=== PATIENT | male | born 1990 | race Caucasian/White ===

== ENCOUNTER 2021-07-05 05:08 | Emergency (ER) | payer BC ==
[2021-07-05 05:37] VITALS: BP 125/78; PULSE 75; TEMP 98; BMI 34.0
[2021-07-05] MEDS ORDERED: KETOROLAC TROMETHAMINE 30 MG/1 ML VIAL IM ONE (05:46)
[2021-07-05] MEDS ORDERED: METHOCARBAMOL 750 MG TABLET PO ONE (05:47)
[2021-07-05] MEDS ORDERED: METHOCARBAMOL 500 MG TABLET ONE (05:50)
[2021-07-05] MEDS ORDERED: predniSONE 20 MG TABLET (UD) PO ONE (06:19)
[2021-07-05] MEDS ORDERED: DEXAMETHASONE SOD PHOSPHATE 10 MG/1 ML VIAL IM ONE (06:20)
[2021-07-05] MEDS ORDERED: DEXAMETHASONE SOD PHOSPHATE 10 MG/1 ML VIAL ONE (06:27)
== END 2021-07-05 06:42 | disposition home or self-care (01) ==
LOC: JER 05:08
PROC: 3E023GC Introduction of Other Therapeutic Substance into Muscle, Percutaneous Approach (ICD-10-PCS; principal; 2021-07-05)
PROC: 3E0233Z Introduction of Anti-inflammatory into Muscle, Percutaneous Approach (ICD-10-PCS; 2021-07-05)
DX: M54.32 Sciatica, left side (principal); G57.02 Lesion of sciatic nerve, left lower limb
CPT/HCPCS: 99284-25; J1100